=== PATIENT | female | born 1945 | race Caucasian/White ===

== ENCOUNTER 2020-05-05 05:35 | Observation (INO) | payer MEDICARE, OTHER ==
[2020-05-01 11:32] LABS: BASOPHILS # (AUTO) 0.1 (0.0-0.1); EOSINOPHILS # (AUTO) 0.4 (0.0-0.4); EOSINOPHILS % 5.8 % (0.0-6.0); HEMATOCRIT 38.3 % (34.2-44.1); HEMOGLOBIN 12.4 g/dL (12.0-16.0); LYMPHOCYTES # (AUTO) 1.7 (1.0-3.2); LYMPHOCYTES % 25.4 % (18.0-39.1); MEAN CORPUSCULAR HEMOGLOBIN 29.9 pg (28-32); MEAN CORPUSCULAR HGB CONC 32.4 g/dL (31-35); MEAN CORPUSCULAR VOLUME 92.3 fL (81-99); MONOCYTES # (AUTO) 0.7 (0.2-0.8); NEUTROPHILS # (AUTO) 3.8 (2.1-6.9); NEUTROPHILS % 56.5 % (38.7-80.0); PLATELET COUNT 301 x10e3/uL (140-360); RED BLOOD COUNT 4.15 x10e6/uL (3.6-5.1); RED CELL DISTRIBUTION WIDTH 13.2 % (11.7-14.4)
--- NOTE | 2020-05-01 11:58 | Diagnostic Imaging Report ---
EXAMINATION: CHEST 2 VIEWS INDICATION: Preop for knee surgery ^[id number] ^1136 ^PRE-OP COMPARISON: None FINDINGS: TUBES and LINES: None. LUNGS: Lungs are well inflated. Lungs are clear. There is no evidence of pneumonia or pulmonary edema. PLEURA: No pleural effusion or pneumothorax. HEART AND MEDIASTINUM: The cardiomediastinal silhouette is unremarkable. BONES AND SOFT TISSUES: No acute osseous lesion. Soft tissues are unremarkable. UPPER ABDOMEN: No free air under the diaphragm. IMPRESSION: No acute thoracic abnormality. Signed by: Dr. Eloy Lindsay M.D. on 05/01/2020 11:55 AM
[~2020-05-05] VITALS: Ht 154.9 cm; Wt 73.0 kg
[~2020-05-05 05:35] MED LIST: FAMOTIDINE20 MG PO; ULTRAM50 MG PO
[2020-05-05] MEDS ORDERED: DIOVAN160 MG PO (06:10)
[2020-05-05] MEDS ORDERED: ADVIL COLD & S1 EACH (06:11)
[2020-05-05] MEDS ORDERED: HYDROCHLOROTH12.5 MG (06:11)
[2020-05-05] MEDS ORDERED: GABAPENTIN 300 MG CAP ONE (06:13)
[2020-05-05] MEDS ORDERED: CELECOXIB 200 MG CAP ONE (06:13)
[2020-05-05] MEDS ORDERED: CEFAZOLIN SOD 1 GM/NS 50ML 100 ML IV ONE (06:13)
[2020-05-05] MEDS ORDERED: DEXAMETHASONE SOD PHOS 10 MG/1 ML VIAL ONE (06:13)
[2020-05-05] MEDS ORDERED: ROPIVACAINE 246.25 MG, EPINEPHRINE HCL 1:1000 1ML 0.5 MG, CLONIDINE HCL 0.08 MG, KETORO... INJ ONE ×5 (08:00)
[2020-05-05] MEDS ORDERED: VANCOMYCIN HCL 1,000 MG ONE (08:39)
[2020-05-05] MEDS ORDERED: SODIUM CHLORIDE 0.9% 500ML 500 ML ONE (08:40)
[2020-05-05] MEDS ORDERED: TRANEXAMIC ACID 1,000 MG/10 ML ML ONE (08:40)
[2020-05-05] MEDS ORDERED: ACETAMINOPHEN 650 MG SUPP PR PRN (10:30)
[2020-05-05] MEDS ORDERED: ONDANSETRON HCL INJ 2MG/ML 2ML 2 MG/ML VIAL IV PRN (10:30)
[2020-05-05] MEDS ORDERED: HYDROCODONE/APAP 5MG-325MG TAB PO PRN (10:30)
[2020-05-05] MEDS ORDERED: DOCUSATE SODIUM 100 MG CAP PO PRN (10:30)
[2020-05-05] MEDS ORDERED: SODIUM CHLORIDE 0.9% 1000ML 1,000 ML IV SCH (10:30)
[2020-05-05] MEDS ORDERED: DIPHENHYDRAMINE HCL INJ 50 MG/ML VIAL IV PRN (10:30)
[2020-05-05] MEDS ORDERED: KETOROLAC TROMETHAMINE 30 MG/ML VIAL IV PRN (10:30)
--- NOTE | 2020-05-05 11:06 | Operative Report ---
DATE OF PROCEDURE: 05/05/2020 SURGEON: Rob Torres MD RECORD CHANGER: Amado Aj, certified PA. PREOPERATIVE DIAGNOSIS: Osteoarthritis, left knee. POSTOPERATIVE DIAGNOSIS: Osteoarthritis, left knee. PROCEDURE: Left total knee arthroplasty. INDICATIONS: The patient is a 74-year-old lady who has end-stage medial compartment osteoarthritis of her left knee. She has failed conservative management and would like to proceed with a left total knee replacement. The risks and benefits of the procedure have been discussed. The implants, the hospital stay, and the recovery have all been explained. All of her questions have been answered. She states she understands and wishes to proceed. PROCEDURE IN DETAIL: The patient was brought to the operating room and placed under general anesthetic. She received prophylactic antibiotics, a regional block and tranexamic acid in the holding area. Her left lower extremity was then prepped and draped in a sterile manner. A preoperative time-out was performed. The extremity was exsanguinated and a proximal tourniquet was inflated to 300 mmHg. An anterior incision with a medial parapatellar arthrotomy was performed. Clear synovial fluid was removed from the joint. Abundant subcutaneous adipose tissue was encountered making exposure more challenging. Soft tissue releases were performed to bring the knee up into flexion with the patella everted. Meniscal remnants, marginal osteophytes and the cruciate ligaments were removed. A Ravin/Biomet Persona medial congruent knee system was used. After adequate exposure of the proximal tibia, an extramedullary cutting guide was used to resect the proximal tibia. The cut was referenced off the medial compartment. A portion of the cut had to be done free hand due to the amount of anterior adipose tissue and the difficulties to get the cutting jig in appropriate position. The tibial base plate was noted to be a size D. The central fin punch was drilled and impacted and attention was directed towards the distal femur. An intramedullary cutting guide was used to resect the distal femur in 5 degrees of valgus and rotation referencing off a combination of landmarks including Whitesides line, the epicondylar axis, and the posterior condyles. The femoral component was a size 7. The anterior and posterior cuts were made. Trial reductions were performed. A 10 mm medial congruent tibial insert provided appropriate soft tissue balancing in full extension and 90 degrees of flexion. The patella was then resurfaced with a 29 mm patellar button. The thickness was checked before and after. It was about 16 mm prior to resurfacing and about 18 mm after resurfacing. Patellar tracking was noted to be concentric. The trial implants were then all removed. A 100 mL premixed pericapsular KRZYSZTOF injection was placed into the surrounding soft tissue. The wound was thoroughly irrigated with a shower tip pulsatile lavage. The components were cemented into place using a single mix of Biomet high viscosity cement preloaded with antibiotics. The wound was further irrigated while the cement cured. The arthrotomy was closed after sprinkling 500 mg of vancomycin powder deep into the wound. The arthrotomy was closed with interrupted #1 Ethibond stitches in a [id number] fashion. The knee was put through flexion and extension to ensure a secure closure. The skin was carefully closed with subcuticular Vicryl and flaca. A sterile Aquacel bandage was applied. The patient was extubated and transported to the recovery room in stable condition. Blood loss was minimal. All needle and sponge counts were correct. Rob Torres MD DR/MAJOR /[id number]
--- NOTE | 2020-05-05 11:10 | Diagnostic Imaging Report ---
Radiographs of the left knee - 2 views HISTORY: Pain COMPARISON: None available. FINDINGS: Bones: No acute displaced fracture. Osseous alignment is within normal limits. Joints: Patient status post left knee replacement with associated postsurgical change. The surgical hardware is intact without evidence of failure or loosening. Soft tissues: The soft tissues appear unremarkable. IMPRESSION: Patient status post left knee replacement with associated postsurgical change. The surgical hardware is intact without evidence of failure or loosening. Signed by: Dr. Eloy Lindsay M.D. on 05/05/2020 11:07 AM
[2020-05-05] MEDS ORDERED: ROPIVACAINE 0.5% 5 MG/ML 30 ML SDV ONE (12:54)
[2020-05-05] MEDS ORDERED: FENTANYL CITRATE/PF 100MCG/2 ML INJ ONE ×2 (13:26→15:06)
--- NOTE | 2020-05-05 14:40 | NUR ---
RECEIVED PATIENT FROM PACU. PATIENT A/O X3, EVEN RESPIRATIONS ON RA. LUNG SOUNDS CLEAR. LEFT KNEE DRESSING C/D/I. MEGHANN HOSE TO RIGHT LEG. FOOT PUMPS BILATERALLY. LEFT AC 20 GAUGE IV WITH NS @ 100 CC/HR. PATIENT DENIES PAIN. PATIENT HAS VOIDED SINCE SURGERY. SKIN INTACT. CALL LIGHT IN REACH WILL CONTINUE TO MONITOR PATIENT.
[2020-05-05] MEDS ORDERED: MIDAZOLAM HCL 2 MG/2 ML VIAL ONE (15:06)
--- NOTE | 2020-05-05 15:25 | NUR ---
DR HAMPTON OFFICE PREARRANGED FOLLOWING DISCHARGE PLAN OF:HOME [address], [address] [facility] CONFIRMED WITH [facility] [phone] DME 3 IN ONE COMMODE. AND CPM PROVIDED BY [facility] [phone], PROVIDED [facility] OBTAINED SIGNATURES AND PUT GREEN SHEET IN PACU FOR PROCESSING. KATHY SIGNED AND ON CHART COPY LEFT WITH PATIENT GAVE CARD FOR QUESTIONS AND OR CONCERNS.
[2020-05-05 15:46] VITALS: BP 124/61
[2020-05-05 15:50] VITALS: BP 124/61
[2020-05-05 15:54] VITALS: BP 124/61
[2020-05-05] MEDS: CEFAZOLIN SOD 1 GM/NS 50ML 50 ML IV SCH ×2 (16:29→21:06)
[2020-05-05] MEDS: ASPIRIN 325 MG TAB PO SCH (16:29)
[2020-05-05] MEDS: CELECOXIB 100 MG CAP PO SCH (16:29)
[2020-05-05] MEDS ORDERED: SEVOFLURANE INHAL SOLN 250 ML PEN BTL ONE (17:35)
[2020-05-05] MEDS ORDERED: PROPOFOL IV EMULSION 10 MG/ML 20 ML VIAL ONE (17:35)
[2020-05-05] MEDS ORDERED: LIDOCAINE HCL 2% LOCAL INJ 5 ML SDV VIAL INJ ONE (17:35)
[2020-05-05] MEDS ORDERED: ONDANSETRON HCL INJ 2MG/ML 2ML 2 MG/ML VIAL ONE (17:35)
--- NOTE | 2020-05-05 18:44 | NUR ---
CPM STARTED AT 60 DEGREES PATIENT TOLERATING WELL. CALL LIGHT IN REACH WILL CONTINUE TO MONITOR.
--- NOTE | 2020-05-05 18:55 | NUR ---
RECEIVED BEDSIDE SHIFT REPORT FROM PREVIOUS NURSE. CALL LIGHT WITHIN REACH. PATIENT IN BED.
[2020-05-05 20:00] VITALS: BP 107/46
[2020-05-05 20:32] VITALS: BP 107/46
[2020-05-05] MEDS ORDERED: ZOLPIDEM TARTRATE 5 MG TAB PO PRN (21:00)
[2020-05-05] MEDS: HYDROCODONE/APAP 7.5MG-325MG 1 EA TAB PO PRN (21:05)
--- NOTE | 2020-05-05 23:30 | NUR ---
GAVE REPORT TO KELLEY. PATIENT IN BED. CALL LIGHT WITHIN REACH. PATIENT IN NO PAIN OR DISTRESS.
[2020-05-06] VITALS: BP 107/51
--- NOTE | 2020-05-06 00:29 | NUR ---
Received pt in bed asleep, easily awakened, no c/o discomfort at this time, opportunity to assist with bathroom given, No s/sx of acute distress noted. Bed in low and locked position call light and personal items within reach. Pt ask for door to remain open. Will cont to mon.
[2020-05-06] MEDS: HYDROCODONE/APAP 7.5MG-325MG 1 EA TAB PO PRN ×4 (00:40→13:48)
[2020-05-06 04:00] VITALS: BP 114/46
[2020-05-06 05:14] LABS: HEMATOCRIT 30.8 % (34.2-44.1)
--- NOTE | 2020-05-06 05:45 | Consultation ---
DATE OF CONSULTATION: REASON FOR CONSULTATION: Postop medical management. HISTORY OF PRESENT ILLNESS: The patient is a 74-year-old lady, status post left knee arthroplasty. She is doing well postoperatively. REVIEW OF SYSTEMS: She does complain of some minimal pain, but denies any fever, chills, nausea, vomiting, headache, or shortness of breath. PAST MEDICAL HISTORY: Significant for reflux disease, arthritis, and hypertension. MEDICATIONS: See MAR. ALLERGIES: NONE. SOCIAL HISTORY: Nonsmoker and nondrinker. . FAMILY HISTORY: Noncontributory. PHYSICAL EXAMINATION: VITAL SIGNS: Temperature 99.0, pulse 81, blood pressure 107/51, saturations 98% on room air. GENERAL: No apparent distress, lying in bed. NECK: Supple. CARDIOVASCULAR: Regular rate and rhythm. LUNGS: Clear to auscultation bilaterally. ABDOMEN: Good bowel sounds. Soft, nontender. EXTREMITIES: No clubbing or cyanosis. Her bandages showing no seepage. NEUROLOGIC: Nonfocal. ASSESSMENT/PLAN: 1. Left knee pain. Continue with Physical therapy and pain control. 2. Anemia. Check a CBC. 3. Hypertension. We will continue to monitor since her blood pressure is a little bit on lower side, and we will hold off on her medication. 4. Reflux disease. We will restart her medicines at discharge, since she is not having current symptoms. Please see hospital chart for details. MD PRAMOD Watson/MAJOR /[id number]
[2020-05-06] MEDS: CEFAZOLIN SOD 1 GM/NS 50ML 50 ML IV SCH (06:44)
--- NOTE | 2020-05-06 07:00 | NUR ---
bedside shift report received pt in stable condition denies pain at this time, updated on poc vocied unerstanding, call light in reach will continue to monitor
[2020-05-06 07:30] VITALS: BP 113/40
[2020-05-06 08:41] VITALS: BP 113/40
[2020-05-06] MEDS: ASPIRIN 325 MG TAB PO SCH (09:14)
[2020-05-06] MEDS: CELECOXIB 100 MG CAP PO SCH (09:14)
[2020-05-06] MEDS ORDERED: ACETAMINOPHEN 1000 MG/100 ML IV PRN (10:30)
[2020-05-06 11:28] VITALS: BP 112/52
[2020-05-06] MEDS ORDERED: ONDANSETRON HCL 4 MG ORAL DISINTEGRATING TAB PO PRN (13:30)
[2020-05-06 15:32] VITALS: BP 130/51
[2020-05-06] MEDS ORDERED: CELECOXIB 200 MG CAP PO SCH (17:00)
== END 2020-05-06 15:00 | disposition home health service (06) ==
LOC: OR 05:35 → PACU V 10:27 → MED/SURG 14:47
PROVIDERS: ADMIT Specialist; ATTEND Specialist
DX: M17.0 Bilateral primary osteoarthritis of knee (principal); J45.909 Unspecified asthma, uncomplicated; Z90.49 Acquired absence of other specified parts of digestive tract; I10 Essential (primary) hypertension; F41.9 Anxiety disorder, unspecified; D64.9 Anemia, unspecified; K21.9 Gastro-esophageal reflux disease without esophagitis; Z11.59 Encounter for screening for other viral diseases
CPT/HCPCS: 27447; 36415 ×2; 71046; 73560; 85014; 85018; 85025; 86850; 86900; 93005; 97116 ×2; 97161; 97530; C1713; G0378 ×2; J0171; J0690 ×2; J1100; J1200; J1885; J2001; J2405; J2704; J2795; J3010; J3370; J7030; J7040; U0002; J2250